=== PATIENT | male | born 1975 | race Caucasian/White ===

== ENCOUNTER 2018-03-05 19:05 | Emergency (ER) | payer BC, OTHER ==
[2018-03-05] MEDS ORDERED: Cephalexin 500 MG Cap PO ONE (19:30)
--- NOTE | 2018-03-05 19:32 | EDM.PDOC ---
ED HPI GENERAL MEDICAL PROBLEM - General Stated Complaint: LEFT SIDE OF FACE IS SWOLLEN Time Seen by Provider: 03/05/18 19:28 Source of Information: Reports: Patient History Limitations: Reports: No Limitations - History of Present Illness INITIAL COMMENTS - FREE TEXT/NARRATIVE: Maxi is a 42-year-old male complaining of swelling and pain on the left side of the face. Started last night. He says [id number] pain on movement .He believes it's from a broken tooth. No trauma. No fever or difficulty swallowing ED ROS ENT - Review of Systems Review Of Systems: ROS reveals no pertinent complaints other than HPI. ED EXAM, ENT - Physical Exam Exam: See Below Text/Narrative:: There is marked swelling of the maxillary area on the left side of the face.. Oral examination shows tooth #15 broken off,with large cavity in setting of of gum swelling. ENT is negative Departure - Departure Time of Disposition: 19:31 Disposition: Home, Self-Care 01 Clinical Impression: Dental abscess - Discharge Information Referrals: Patti Steen, TELEHEALTH CASE MANAGER [Primary Care Provider] - - Problem List & Annotations (1) Dental abscess SNOMED Code(s): 953983998 Code(s): K04.7 - PERIAPICAL ABSCESS WITHOUT SINUS Status: Acute - Problem List Review Problem List Initiated/Reviewed/Updated: Yes - Assessment/Plan Plan: DC home on Cephalexin. He say she is allergic to PCN,but no previous reactions he knows of.
== END 2018-03-05 20:20 | disposition home or self-care (01) ==
LOC: FB.ED 19:05
DX: K04.7 Periapical abscess without sinus (principal)
CPT/HCPCS: 99282; A9270-GY